=== PATIENT | female | born 1995 | race African-American/Black ===

== ENCOUNTER 2020-04-03 09:00 | Emergency (ER) | payer SELFPAY ==
[~2020-04-03] VITALS: Ht 157.5 cm; Wt 69.9 kg
[2020-04-03] MEDS ORDERED: CEFTRIAXONE SOD 1 GM VIAL IM STA (09:44)
[2020-04-03] MEDS ORDERED: AZITHROMYCIN 250 MG TAB PO STA (09:44)
[2020-04-03] MEDS ORDERED: METHYLPREDNISOLONE SOD SUCC 125 MG/2ML VIAL IM STA (09:46)
--- NOTE | 2020-04-03 09:52 | Diagnostic Imaging Report ---
EXAM: CXR 2 VIEW - [facility] DATE: 04/03/2020 9:40 AM INDICATION: Cough, flulike symptoms COMPARISON: None FINDINGS: The trachea is midline. The lungs are symmetrically expanded without evidence for large focal consolidation, pneumothorax, or significant pleural effusion. The cardiomediastinal silhouette and pulmonary vasculature are within normal limits. No acute osseous abnormality is identified. The surrounding soft tissues are unremarkable. IMPRESSION: No acute cardiopulmonary process identified. Signed by: Dr. Rahul Gray MD on 04/03/2020 9:49 AM
--- NOTE | 2020-04-03 10:00 | Emergency Department Note ---
History of Present Illnes History of Present Illness Chief Complaint: sob History of Present Illness This is a 24 year old female. was doing well until 4 days ago then sore throat, nasal congestion, sinus pressure/congestion, then productive cough. then can't breathe through nose. Historian: Patient Arrival Mode: Car History limited by: condition of the patient (normal) Stitch [place] Required: No Onset (how long ago): day(s) (1) Location: n/a Quality: mild Radiation: Denies non-radiation Severity: mild Onset quality: gradual Duration (how long): day(s) (1) Timing of current episode: constant Progression: worsening Chronicity: recurrent (sinus infection) Relieving factors: movement Exacerbating factors: none Associated symptoms: Reports cough, Reports headaches (sinus) Treatments prior to arrival: none Risk factors: n/a Past Medical/Family History Physician Review I have reviewed the patient's past medical and family history. Any updates have been documented here. Past Medical History Recent Fever: No Clinical Suspicion of Infectio: No New/Unexplained Change in Ment: No Past Medical History: None Past Surgical History: None Social History Smoking Cessation: Never Smoker Counseling Performed: No Alcohol Use: None Any Illegal Drug Use: No TB Exposure/Symptoms: No Physically hurt or threatened: No Family History Family history of heart diseas: No Other Any Pre-Existing Lines (PICC,: No Is patient up to date on immun: Yes Last Flu: none Last Pneumovax: none Review of Systems Review of Systems Constitutional: Reports no symptoms EENTM: Reports as per HPI, Reports nose congestion, Reports other (SINUS PRESSURE/PAIN) Cardiovascular: Reports no symptoms Respiratory: Reports as per HPI, Reports cough Gastrointestinal: Reports no symptoms Genitourinary: Reports no symptoms Musculoskeletal: Reports no symptoms Integumentary: Reports no symptoms Neurological: Reports headache Psychological: Reports no symptoms Endocrine: Reports no symptoms Hematological/Lymphatic: Reports no symptoms Review of other systems: All other systems negative Physical Exam Related Data Allergies: Coded Allergies: No Known Allergies (Unverified , 04/03/20) Triage Vital Signs Vital Signs Date Time Temp Pulse Resp B/P (MAP) Pulse Ox O2 Delivery O2 Flow Rate FiO2 04/03/20 09:05 98.7 80 16 125/85 100 Vital signs reviewed: Yes Physical Exam CONSTITUTIONAL Constitutional: Present well-developed, Present well-nourished HENT HENT: Present normocephalic, Present atraumatic, Present nose normal, Present nasal congestion, Present erythema, Present other (ethmoid/sinus tenderness) HENT L/R: Present left ext ear normal, Present right ext ear normal EYES Eyes: Reports PERRL, Reports conjunctivae normal NECK Neck: Present ROM normal, Present supple PULMONARY Pulmonary: Present effort normal, Present breath sounds normal CARDIOVASCULAR Cardiovascular: Present regular rhythm, Present heart sounds normal, Present capillary refill normal, Present normal rate GASTROINTESTINAL Abdominal: Present soft, Present nontender, Present bowel sounds normal GENITOURINARY Genitourinary: Present exam deferred SKIN Skin: Present warm, Present dry MUSCULOSKELETAL Musculoskeletal: Present ROM normal NEUROLOGICAL Neurological: Present alert, Present oriented x 3, Present no gross motor or sensory deficits PSYCHOLOGICAL Psychological: Present mood/affect normal, Present judgement normal Results Imaging Imaging results reviewed: Yes (CXR WNL) Impressions [place] [id number] Patient Name: HANNA FELIX MR #: [id number] : 1995 Age/Sex: 24/F Req #: [id number] Adm Physician: Ordered by: LISA DOWNS Report #: [id number] Location: [facility] Room/Bed: Procedure: [id number] HOPD/CXR 2 VIEW - [facility] Exam Date: 04/03/20 Exam Time: 0940 REPORT STATUS: Signed EXAM: CXR 2 VIEW - [facility] DATE: 04/03/2020 9:40 AM INDICATION: Cough, flulike symptoms COMPARISON: None FINDINGS: The trachea is midline. The lungs are symmetrically expanded without evidence for large focal consolidation, pneumothorax, or significant pleural effusion. The cardiomediastinal silhouette and pulmonary vasculature are within normal limits. No acute osseous abnormality is identified. The surrounding soft tissues are unremarkable. IMPRESSION: No acute cardiopulmonary process identified. Signed by: Dr. Rahul Cheney MD on 04/03/2020 9:49 AM Dictated By: RAHUL CHENEY MD 8 Transcribed By: CARLO on 04/03/20948 COPY TO: LISA DWONS~ Assessment & Plan Medical Decision Making MDM sinusitis, pharyngitis, bronchitis Assessment & Plan Final Impression: (1) Acute bronchitis (2) Acute sinusitis (3) Acute pharyngitis (4) Sinus headache Depart Disposition: HOME, SELF-CARE Last Vital Signs Date Time Temp Pulse Resp B/P (MAP) Pulse Ox O2 Delivery O2 Flow Rate FiO2 04/03/20 09:05 98.7 80 16 125/85 100 Home Meds Active Scripts D-Methorphan Hb/P-Epd Hcl/Bpm (BROMFED DM COUGH SYRUP) 118 Ml Syrup, 10 ML PO Q4HR PRN for COUGH, #240 ML PRN COUGH, CONGESTION, ALLERGY SYMPTOMS Prov:LISA DOWNS 04/03/20 Prednisone (PREDNISONE) 20 Mg Tab, 60 MG PO DAILY, #15 TAB START TODAY. TAKE ALL 3 PILLS AT ONCE Prov:LISA DOWNS 04/03/20 Cefdinir (OMNICEF) 300 Mg Capsule, 300 MG PO Q12H for 14 Days, #28 CAP Prov:LISA DOWNS 04/03/20 Azithromycin (AZITHROMYCIN) 500 Mg Tablet, 500 MG PO DAILY for 4 Days, #4 TAB start tomorrow Prov:LISA DOWNS 04/03/20 Medications in the ED Ceftriaxone Sodium 1 gm ONCE STAT IM ; Start 04/03/20 at 09:44; Stop 04/03/20 at 09:45; Status UNV Azithromycin 500 mg ONCE STAT PO ; Start 04/03/20 at 09:44; Stop 04/03/20 at 09:45; Status UNV Methylprednisolone Sodium Succinate 125 mg ONCE STAT IM ; Start 04/03/20 at 09:46; Stop 04/03/20 at 09:48; Status DC LISA DOWNS Apr 03, 2020 10:00
[2020-04-03] MEDS ORDERED: PREDNISONE20 MG PO (10:15)
[2020-04-03] MEDS ORDERED: CEFDINIR300 MG PO (10:15)
[2020-04-03] MEDS ORDERED: BROMFED DM COU118 ML PO (10:15)
[2020-04-03] MEDS ORDERED: AZITHROMYCIN500 MG PO (10:15)
[2020-04-03] MEDS ORDERED: AZITHROMYCIN 250 MG TAB ONE (10:19)
[2020-04-03] MEDS ORDERED: CEFTRIAXONE SOD 1 GM VIAL ONE (10:20)
[2020-04-03] MEDS ORDERED: METHYLPREDNISOLONE SOD SUCC 125 MG/2ML VIAL ONE (10:20)
[2020-04-03 10:39] VITALS: BP 120/71
== END 2020-04-03 10:33 | disposition home or self-care (01) ==
LOC: FSED 09:00
DX: R05 Cough (principal); J20.9 Acute bronchitis, unspecified; J02.9 Acute pharyngitis, unspecified; J32.9 Chronic sinusitis, unspecified
CPT/HCPCS: 71046; 99283; J0696; J2930

== ENCOUNTER 2020-04-17 19:25 | Emergency (ER) | payer SELFPAY ==
[~2020-04-17] VITALS: Ht 157.5 cm; Wt 69.9 kg
[~2020-04-17 19:25] MED LIST: AZITHROMYCIN500 MG PO; BROMFED DM COU118 ML PO; CEFDINIR300 MG PO; PREDNISONE20 MG PO
--- NOTE | 2020-04-17 20:21 | Emergency Department Note ---
History of Present Illnes History of Present Illness Chief Complaint: Chest Pain History of Present Illness This is a 25 year old female c/o pleuritic c/p, body ache, no t aste for 3 days no f/c no SOB. 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 Any updates have been documented here. Past Medical History Recent Fever: No Clinical Suspicion of Infectio: No Past Medical History: None Past Surgical History: None Social History Smoking Cessation: Unknown if ever smoked Any Illegal Drug Use: No TB Exposure/Symptoms: No Review of Systems Review of Systems Constitutional: Reports malaise EENTM: Reports no symptoms Cardiovascular: Reports chest pain Respiratory: Reports chest congestion Gastrointestinal: Reports no symptoms Genitourinary: Reports no symptoms Musculoskeletal: Reports no symptoms Integumentary: Reports no symptoms Neurological: Reports other (loss of taste) Psychological: Reports no symptoms Endocrine: Reports no symptoms Hematological/Lymphatic: Reports no symptoms Physical Exam Related Data Allergies: Coded Allergies: No Known Allergies (Unverified , 04/03/20) Physical Exam CONSTITUTIONAL Constitutional: Present well-developed, Present well-nourished HENT HENT: Present normocephalic, Present atraumatic, Present oropharynx clear/moist, Present nose normal HENT L/R: Present left ext ear normal, Present right ext ear normal EYES Eyes: Reports PERRL, Reports conjunctivae normal NECK Neck: Present ROM normal PULMONARY Pulmonary: Present effort normal, Present breath sounds normal CARDIOVASCULAR Cardiovascular: Present regular rhythm, Present heart sounds normal, Present capillary refill normal, Present normal rate GASTROINTESTINAL Abdominal: Present soft, Present nontender, Present bowel sounds normal GENITOURINARY Genitourinary: Present exam deferred SKIN Skin: Present warm, Present dry MUSCULOSKELETAL Musculoskeletal: Present ROM normal NEUROLOGICAL Neurological: Present alert, Present oriented x 3, Present no gross motor or sensory deficits PSYCHOLOGICAL Psychological: Present mood/affect normal, Present judgement normal Results Laboratory Lab results reviewed: Yes Laboratory comments CMN doubt MT, DDIMER wnl, doubt PE Imaging Imaging results reviewed: Yes Procedures 12 Lead ECG Interpretation ECG Interpretation : ECG: ECG 1 Land Leasing Examiner: Interpreted by ED physician Date: Apr 17, 2020 Time: 20:09 Rhythm: sinus rhythm Rate: normal QRS axis: normal ST segments normal: Yes T waves normal: Yes Other findings: LAE Clinical Impression: normal ECG Assessment & Plan Medical Decision Making MDM low risk chest pain, covid vs PE Assessment & Plan Final Impression: (1) Chest pain Depart Disposition: HOME, SELF-correction Meds Active Scripts Diphenhydra/Phenyleph/Acetamin (THERAFLU COLD AND COUGH POWDER) 1 Each Powd.pack, 1 PACKET PO Q6H PRN for fever and or pain, #12 Prov:BRODY RIVERA MD 04/17/20 D-Methorphan Hb/P-Epd Hcl/Bpm (BROMFED DM COUGH SYRUP) 118 Ml Syrup, 10 ML PO Q4HR PRN for COUGH, #240 ML PRN COUGH, CONGESTION, ALLERGY SYMPTOMS Prov:LISA DOWNS 04/03/20 Prednisone (PREDNISONE) 20 Mg Tab, 60 MG PO DAILY, #15 TAB START TODAY. TAKE ALL 3 PILLS AT ONCE Prov:LISA DOWNS 04/03/20 Cefdinir (OMNICEF) 300 Mg Capsule, 300 MG PO Q12H for 14 Days, #28 CAP Prov:LISA DOWNS 04/03/20 Azithromycin (AZITHROMYCIN) 500 Mg Tablet, 500 MG PO DAILY for 4 Days, #4 TAB start tomorrow Prov:LISA DOWNS 04/03/20 BRODY RIVERA MD Apr 17, 2020 20:21
--- NOTE | 2020-04-17 20:55 | Diagnostic Imaging Report ---
EXAMINATION: CXR 2 VIEW - [facility] INDICATION: ^chert pain ^[id number] ^[id number] COMPARISON: 04/03/2020 FINDINGS: TUBES and LINES: None. LUNGS: Lungs are well inflated. Lungs are clear. There is no evidence of pneumonia or pulmonary edema. PLEURA: No pleural effusion or pneumothorax. HEART AND MEDIASTINUM: The cardiomediastinal silhouette is unremarkable. BONES AND SOFT TISSUES: No acute osseous lesion. Soft tissues are unremarkable. UPPER ABDOMEN: No free air under the diaphragm. IMPRESSION: No acute thoracic abnormality. Signed by: Dr. Sandra Ramachandran M.D. on 04/17/2020 8:52 PM
[2020-04-17] MEDS ORDERED: THERAFLU COLD1 EAC4 PO (21:26)
== END 2020-04-17 21:50 | disposition home or self-care (01) ==
LOC: FSED 20:37
DX: R07.89 Other chest pain (principal)
CPT/HCPCS: 71046; 80053; 81003; 85025; 93005; 99284